=== PATIENT | female | born 1990 | race Caucasian/White ===

== ENCOUNTER → 2021-09-26 13:28 | Outpatient (REF) | payer OTHER, SELFPAY ==
--- NOTE | 2021-09-26 13:32 | ECG_ITS ---
Hook-up date: 2021-09-26 13:52:00 Duration: 25:43:00 Test Indications: PALPITATIONS Medications: 260040 QRS complexes 2 Ventricular ectopics which represent <1 % of total QRS comp. 2 Supraventricular ectopics which represent <1 % of total QRS comp. * Paced QRS complexs which represent % of total QRS comp. VENTRICULAR ECTOPY 2 Isolated 0 Bigeminal Cycles 0 Couplets 0 Runs 0 Beats in Runs * Beats LONGEST at * BPM at :: -- * Beats FASTEST at * BPM at :: -- SUPRAVENTRICULAR ECTOPY 2 Isolated 0 Couplets 0 Runs 0 Beats in Runs * Beats LONGEST at * BPM at :: -- * Beats FASTEST at * BPM at :: -- HEART RATES 56 MIN at 02:08:21 2021-09-27 103 AVG 166 MAX at 17:27:51 2021-09-26 LONGEST RR 1.4160 secs at 02:03:42 2021-09-27 S-T LEVELS Channel 1 - 128 mm at 13:52:00 2021-09-26 - 128 mm at 13:52:00 2021-09-26 Channel 2 - 128 mm at 13:52:00 2021-09-26 - 128 mm at 13:52:00 2021-09-26 Channel 3 - 128 mm at 03:31:11 -- - 128 mm at 03:31:11 Basic rhythm Normal sinus rhythm No long pause or profound bradycardia Frequent Sinus tachycardia , 64% of time HR > 100 bpm No dangerous dysrhythm periods Patient reported multiple vents correlated with sinus tachycardia Referred By: Quynh Johnson Overread By: TAMMIE EDMOND MD
== END ==
LOC: HO.CARD 13:28
PROVIDERS: PCP Nurse Practitioner Family; Visit Provider Nurse Practitioner Family
DX: R07.89 Other chest pain (principal); R00.2 Palpitations
CPT/HCPCS: 93225; 93226

== ENCOUNTER 2021-10-08 08:43 | Outpatient (REF) | payer OTHER, SELFPAY ==
[2021-10-08 09:42] LABS: D Dimer High Sensitivity < 150 NG/ML
== END 2021-10-08 08:44 | disposition home or self-care (01) ==
LOC: HO.LAB 08:43
PROVIDERS: PCP Nurse Practitioner Family; Visit Provider Nurse Practitioner Family
DX: R07.9 Chest pain, unspecified (principal); R06.00 Dyspnea, unspecified; R09.02 Hypoxemia; R00.2 Palpitations
CPT/HCPCS: 36415; 85379

== ENCOUNTER → 2021-10-29 08:29 | Outpatient (REF) | payer OTHER, SELFPAY ==
--- NOTE | 2021-10-29 08:35 | CA_ITS ---
Transthoracic Echocardiogram Patient (Last, First, Middle): Di Muhammad, Gender: Female Date of : 1990 Age: 31 Procedure Date: 10/29/2021 Procedure Type: Transthoracic Echocardiogram Location: OP Height: 175.26 cm Weight: 58.97 kg BSA: 1.72 m2 Heart Rate: bpm BP: 130 / 77 mmHg It Application Development Manager: VH/OT Referring MD: Quynh Johnson NP Symptoms: R00.2 PALPITATIONS, CHEST PAIN R07.89 Study Quality: Fair ECG Rhythm: Sinus Conclusions: - The left ventricular systolic function is normal. The calculated ejection fraction is 59% by biplane method. - No obvious valvular pathology seen on this study. Findings Left Ventricle Normal left ventricular cavity size. There is normal left ventricular wall thickness. The left ventricular systolic function is normal. The calculated ejection fraction is 59% by biplane method. There is no evidence of regional wall motion abnormalities. Diastolic function is normal for age. Right Ventricle Normal right ventricular cavity size and systolic function. Atria Both atria are normal in size. Aortic Valve The aortic valve was not well visualized. The aortic valve structure and function is likely normal. There is no aortic valve stenosis. There is no aortic valve regurgitation. Mitral Valve The mitral valve appears normal. There is trace mitral valve regurgitation. There is no mitral valve stenosis. Pulmonic Valve The pulmonic valve was not well visualized. Tricuspid Valve Normal tricuspid valve structure. There is trace tricuspid valve regurgitation. The pulmonary artery systolic pressure is normal. Great Vessels The sinuses of valsalva and asc aorta are normal in size. Venous The inferior vena cava is normal in size and collapses greater than 50% with inspiration. Pericardium/Pleural There is no evidence of pericardial effusion. Prior Study Comparison No prior study available for comparison. Recommendations, Care & Conclusions No obvious valvular pathology seen on this study. Measurements 2D Linear Measurements IVSd: 0.71 0.6-0.9/0.6-1.0 cm LVIDd: 3.65 3.9-5.3/4.2-5.9 cm LVIDd Index: 2.12 2.4-3.2/2.2-3.1 cm/m2 LVIDs: 2.55 2.0-3.6 cm LVPWd: 0.71 0.7-1.1 cm LA Diam: 2.40 2.7-3.8/3.0-4.0 cm LAIDs Index: 1.40 1.5-2.3 cm/m2 LV Mass: 84.64 67-162/88-224 g LV Mass Index: 49.21 43-95/49-115 g/m2 LVOT Diam: 2.00 3.0+(-)1.3 cm 2D Systolic Function EF 4C: 59.00 >55% EF 2C: 61.70 >55% EF BiP: 59.30 >55% Mitral Valve MV Pk E: 0.81 MV PK A: 0.66 MV Decel Time: 145.00 E/A: 1.20 E'Lateral: 10.10 E'Medial: 11.00 E/E' Med: 7.30 E/E' Lat: 8.00 PHT: 42.00 MVA PHT: 5.24 Decel [place]: 5.56 Aortic Valve AoV Pk Gen: 1.22 AoV Mn Gen: 0.90 AoV VTI: 0.24 AoV Pk Grad: 6.00 Aov Mn Grad: 3.00 CHRISTOPH Cont.VTI: 2.43 LVOT LVOT Pk Gen: 0.93 LVOT Mn Gen: 0.63 LVOT VTI: 0.19 LVOT Pk Grad: 3.00 LVOT Mn Grad: 2.00 LVOT Diam: 2.00 LVOT Area: 3.14 Diastolic Function MV Pk E: 0.81 MV Pk A: 0.66 E/A: 1.20 E'Medial: 11.00 E/E' Med: 7.30 E' Laterial: 10.10 E/E' Lat: 8.00 Tricuspid Valve TR Pk Gen: 6.00 RA Press: 3.00 RVSP: 9.00 Great Vessels Aorta Sinus of Valsalva: 2.50 2.0-3.5 cm Ao Asc: 3.00 2.1-3.4 cm Ao Arch: 2.20 Pulmonary Valve PV Pk Gen: 1.00 Peak PV Grad: 4.00 Updated in Other Vendor System with Status of Final Byron Phelps MD electronically signed on 10/29/2021 12:28:41 PM with status of Final
== END ==
LOC: HO.CARD 08:29
PROVIDERS: PCP Nurse Practitioner Family; Visit Provider Nurse Practitioner Family
DX: R00.2 Palpitations (principal); R07.89 Other chest pain
CPT/HCPCS: 93306; J2370; J3010

== ENCOUNTER 2021-11-09 10:10 | Emergency (ER) | payer OTHER, SELFPAY ==
--- NOTE | 2021-11-09 | ECG_ITS ---
Test Reason : PALPITATION Blood Pressure : / mmHG Vent. Rate : 116 BPM Atrial Rate : 116 BPM P-R Int : 128 ms QRS Dur : 082 ms QT Int : 362 ms P-R-T Axes : 080 068 060 degrees QTc Int : 503 ms Sinus tachycardia Nonspecific ST and T wave abnormality Prolonged QT Abnormal ECG No previous ECGs available Referred By: Generic ED Physician Electronically Signed By:LIZETT DELEON
--- NOTE | ~2021-11-09 | XR_ITS ---
EXAMINATION: XR CHEST CLINICAL INFORMATION: Shortness of breath COMPARISON: None TECHNIQUE: Frontal view of the chest was obtained. FINDINGS: The cardiac and mediastinal contours are normal. The lungs are well inflated. There are symmetric nodular densities at both lung bases probably representing nipple shadows. The lungs are otherwise clear. There is no pleural effusion or pneumothorax. Bony structures are unremarkable. XR/XR chest 1V IMPRESSION: No evidence for acute disease in the chest.
[2021-11-09 10:12] VITALS: BP 156/100; PULSE 125; RESP 20; TEMP 36.2; O2SAT 98; BMI 19.0
--- NOTE | 2021-11-09 10:56 | ED_ITS ---
HPI - SOB/Dyspnea General Chief Complaint: Dyspnea Stated Complaint: SOB/HBP Time Seen by Provider: 11/09/21 10:56 Source: patient Mode of arrival: ambulatory Limitations: no limitations History of Present Illness HPI Narrative: patient with increasing shortness of breath and fatigue over the last 3 months. Patient states that she has had tachycardia and palpitations. Despite exercising and eating well symptoms are getting worse. Patient had a full workup including ddimer, echo done 2 weeks ago normal, EKG and holter was normal, thyroid function normal? MD elicited complaint: shortness of breath Related Data Allergies Allergy/AdvReac Type Severity Reaction Status Date / Time No Known Allergies Allergy Verified 11/09/21 11:02 [facility] Social History Social History Alcohol intake: never Patient Tobacco Use Status: Never used Tobacco Use of substances other than those prescribed or required for medical reasons: No Advance Directives: No Advance Directives Information Provided: No Patient : No Physical Exam Vital Signs: Vital Signs: Last Vital Signs Temp 98.2 F 11/09/21 13:11 Pulse 91 11/09/21 13:11 Resp 18 11/09/21 13:11 BP 129/80 11/09/21 13:11 Pulse Ox 98 11/09/21 13:11 BMI result Body Mass Index 19.0 Course Reevaluation(s) Reevaluation #1: patient has had extensive work up for Cardiac issues, today work up negative for hyperthyroid, or autoimmune. She continues to be tachycardic, I will refer her to Dr. Phelps for further consultation. Also considering long covid syndrome as patient recently had Covid. I will dc home Time: 13:44 MDM - SOB/Dyspnea Lab Data Result diagrams: 11/09/21 11:18 11/09/21 11:18 Labs: Lab Results 11/09/21 11/09/21 11/09/21 Range/Units 11:18 11:18 11:18 WBC 10.4 (4.8-10.8) X10*3/uL RBC 4.60 (4.20-5.50) X10*6/uL Hgb 14.3 (12.0-16.0) g/dl Hct 42.8 (37.0-47.0) % MCV 93.0 (80.0-98.0) fL MCH 31.1 (27.0-33.0) pg MCHC 33.4 (31.0-35.0) g/dl RDW 12.6 (11.0-16.0) % Plt Count 231 (160-400) X10*3/uL MPV 11.6 (9.4-12.3) fL Immature Gran % (Auto) 0.3 (0.0-0.4) % Neut % (Auto) 67.5 (45-73) % Lymph % (Auto) 24.2 (20-40) % Gove % (Auto) 6.7 (2-11) % Eos % (Auto) 0.8 (0-4) % Baso % (Auto) 0.5 (0-2) % Lymph # (Auto) 2.5 (1.2-4.9) X10*3/uL Gove # (Auto) 0.7 (0.1-1.2) X10*3/uL Eos # (Auto) 0.1 (0.0-0.4) X10*3/uL Baso # (Auto) 0.1 (0.0-0.2) X10*3/uL Abs Immat Gran (auto) 0.03 (0.00-0.03) X10*3/uL Absolute Neuts (auto) 7.0 (2.0-8.3) x10*3/uL Absolute Nucleated RBC 0.000 (0.0-0.012) X10*3/uL Nucleated RBC % (auto) 0.0 (0.0-0.2) /100WBC ESR (0-20) MM/HR D-Dimer High Sensitivty < 150 NG/ML Sodium 138 (135-145) mmol/L Potassium 3.9 (3.3-5.1) mmol/L Chloride 105 (96-108) mmol/L Carbon Dioxide 24 (22-29) mmol/L Anion Gap 13 (12-20) BUN 15 (9-16) mg/dL Creatinine 1.02 (0.5-1.4) mg/dL Estim Creat Clear Calc 72.8 Estimated GFR > 60 Random Glucose 96 (60-115) mg/dL Calcium 9.9 (8.4-10.2) mg/dL Total Bilirubin 0.5 (0.0-1.0) mg/dL AST 18 (5-31) U/L ALT 23 (0-31) U/L Alkaline Phosphatase 38 L (39-117) U/L Troponin I High Sens (<3.5-17.0) ng/L Total Protein 7.4 (6.5-8.0) g/dL Albumin 4.8 (3.5-5.0) g/dL TSH (0.32-4.0) uIU/mL 11/09/21 11/09/21 11/09/21 Range/Units 11:18 11:18 11:22 WBC (4.8-10.8) X10*3/uL RBC (4.20-5.50) X10*6/uL Hgb (12.0-16.0) g/dl Hct (37.0-47.0) % MCV (80.0-98.0) fL MCH (27.0-33.0) pg MCHC (31.0-35.0) g/dl RDW (11.0-16.0) % Plt Count (160-400) X10*3/uL MPV (9.4-12.3) fL Immature Gran % (Auto) (0.0-0.4) % Neut % (Auto) (45-73) % Lymph % (Auto) (20-40) % Gove % (Auto) (2-11) % Eos % (Auto) (0-4) % Baso % (Auto) (0-2) % Lymph # (Auto) (1.2-4.9) X10*3/uL Gove # (Auto) (0.1-1.2) X10*3/uL Eos # (Auto) (0.0-0.4) X10*3/uL Baso # (Auto) (0.0-0.2) X10*3/uL Abs Immat Gran (auto) (0.00-0.03) X10*3/uL Absolute Neuts (auto) (2.0-8.3) x10*3/uL Absolute Nucleated RBC (0.0-0.012) X10*3/uL Nucleated RBC % (auto) (0.0-0.2) /100WBC ESR 3 (0-20) MM/HR D-Dimer High Sensitivty NG/ML Sodium (135-145) mmol/L Potassium (3.3-5.1) mmol/L Chloride (96-108) mmol/L Carbon Dioxide (22-29) mmol/L Anion Gap (12-20) BUN (9-16) mg/dL Creatinine (0.5-1.4) mg/dL Estim Creat Clear Calc Estimated GFR Random Glucose (60-115) mg/dL Calcium (8.4-10.2) mg/dL Total Bilirubin (0.0-1.0) mg/dL AST (5-31) U/L ALT (0-31) U/L Alkaline Phosphatase (39-117) U/L Troponin I High Sens < 3.5 (<3.5-17.0) ng/L Total Protein (6.5-8.0) g/dL Albumin (3.5-5.0) g/dL TSH 1.29 (0.32-4.0) uIU/mL Imaging Data Chest x-ray: Radiologist's impression: FINDINGS: The cardiac and mediastinal contours are normal. The lungs are well inflated. There are symmetric nodular densities at both lung bases probably representing nipple shadows. The lungs are otherwise clear. There is no pleural effusion or pneumothorax. Bony structures are unremarkable. XR/XR chest 1V IMPRESSION: No evidence for acute disease in the chest. ? ECG Data Attestation: I personally reviewed and interpreted this ECG as follows: Interpretation: sinus tachycardia with rate of 116, RBBB, , no st or twave changes Discharge Plan Discharge Clinical Impression: Tachycardia, COVID-19 kelin roblero Patient Disposition: Home, Self-Care Instructions: Tachycardia (ED), COVID-19 (Coronavirus Disease 2019) (ED) Referrals: Byron Phelps MD [Physician] - 1 week
[2021-11-09 11:26] VITALS: BP 134/79; PULSE 91; RESP 18; TEMP 36.8; O2SAT 99
--- NOTE | 2021-11-09 11:26 | PC.NURSE ---
patient a&ox3, pt denies pain states c/p has subsided, potline monitor applied nsr 80s,vss,iv inserted, labs drawn will continue to monitor.
[2021-11-09 11:32] LABS: MANUAL DIFF FLAG NO
[2021-11-09 11:37] LABS: Basophils Absolute Auto 0.1 X10*3/uL (0.0-0.2); Basophils Percent Auto 0.5 % (0-2); Eosinophils Absolute Auto 0.1 X10*3/uL (0.0-0.4); Eosinophils Percent Auto 0.8 % (0-4); Hematocrit 42.8 % (37.0-47.0); Hemoglobin 14.3 g/dl (12.0-16.0); Imm Gran Abs Auto 0.03 X10*3/uL (0.00-0.03); Imm Gran Pct Auto 0.3 % (0.0-0.4); Lymphocytes Absolute Auto 2.5 X10*3/uL (1.2-4.9); Lymphocytes Percent Auto 24.2 % (20-40); Mean Corpuscular HGB Conc 33.4 g/dl (31.0-35.0); Mean Corpuscular Hemoglobin 31.1 pg (27.0-33.0); Mean Platelet Volume 11.6 fL (9.4-12.3); Monocytes Absolute Auto 0.7 X10*3/uL (0.1-1.2); Monocytes Percent Auto 6.7 % (2-11); Neutrophils Percent Auto 67.5 % (45-73); Platelet Count 231 X10*3/uL (160-400); Red Cell Distribution Width 12.6 % (11.0-16.0); White Blood Count 10.4 X10*3/uL (4.8-10.8)
[2021-11-09 11:52] LABS: Alanine Aminotransferase 23 U/L (0-31); Albumin Level 4.8 g/dL (3.5-5.0); Alkaline Phosphatase 38 U/L (39-117); Anion Gap 13 (12-20); Aspartate Amino Transferase 18 U/L (5-31); Bilirubin Total 0.5 mg/dL (0.0-1.0); Blood Urea Nitrogen 15 mg/dL (9-16); Calcium 9.9 mg/dL (8.4-10.2); Carbon Dioxide 24 mmol/L (22-29); Chloride 105 mmol/L (96-108); Creatinine Clr Calc Pharmacy 72.8; Estimated Glomerular Filt Rate > 60; Glucose Random 96 mg/dL (60-115); Potassium 3.9 mmol/L (3.3-5.1); Sodium 138 mmol/L (135-145); Total Protein 7.4 g/dL (6.5-8.0)
[2021-11-09 11:53] LABS: D Dimer High Sensitivity < 150 NG/ML
[2021-11-09 11:55] LABS: Troponin-I High Sensitivity < 3.5 ng/L (<3.5-17.0)
[2021-11-09 12:08] VITALS: BP 129/80; PULSE 95; RESP 18; O2SAT 100
[2021-11-09 12:10] LABS: TSH reflex Free T4 1.29 uIU/mL (0.32-4.0)
[2021-11-09 12:19] LABS: Erythrocyte Sedimentation Rate 3 MM/HR (0-20)
[2021-11-09 13:11] VITALS: BP 129/80; PULSE 91; RESP 18; TEMP 36.8; O2SAT 98
--- NOTE | 2021-11-09 13:12 | PC.NURSE ---
patient a&ox3, vss, cow tender nsr 80s, pt states she now has chest pain that is dull then sharp up to 4/10, call carolina within reach, will continue to monitor.
== END 2021-11-09 14:12 | disposition home or self-care (01) ==
PROVIDERS: Emergency Provider Emergency Medicine; PCP Nurse Practitioner Family
DX: R06.02 Shortness of breath (principal); R00.0 Tachycardia, unspecified; U09.9 Post COVID-19 condition, unspecified
CPT/HCPCS: 36415; 71045; 80053; 84443; 84484; 85025; 85379; 85652; 93005; 99283; 99284

== ENCOUNTER → 2021-12-11 13:53 | Outpatient (BNVA) | payer OTHER, SELFPAY | PROVIDERS: PCP Nurse Practitioner Family; Visit Provider Internal Medicine | DX: Z13.89 Encounter for screening for other disorder (principal) ==

== ENCOUNTER → 2024-06-24 09:26 | Outpatient (BNVA) | payer OTHER, SELFPAY | PROVIDERS: Visit Provider Physician Assistant Medical | DX: S16.1XXA Strain of muscle, fascia and tendon at neck level, initial encounter (principal); S46.812A Strain of other muscles, fascia and tendons at shoulder and upper arm level, left arm, initial encounter; S40.011A Contusion of right shoulder, initial encounter; S93.491A Sprain of other ligament of right ankle, initial encounter; W22.8XXA Striking against or struck by other objects, initial encounter | CPT/HCPCS: 73030; 73600; 99213 ==

== ENCOUNTER → 2024-06-29 09:32 | Outpatient (BNVA) | payer OTHER, SELFPAY | PROVIDERS: Visit Provider Physician Assistant Medical | DX: S16.1XXA Strain of muscle, fascia and tendon at neck level, initial encounter (principal); S46.812A Strain of other muscles, fascia and tendons at shoulder and upper arm level, left arm, initial encounter; S40.011A Contusion of right shoulder, initial encounter; S93.491A Sprain of other ligament of right ankle, initial encounter; W22.8XXA Striking against or struck by other objects, initial encounter | CPT/HCPCS: 99213 ==

== ENCOUNTER → 2024-07-07 09:49 | Outpatient (BNVA) | payer OTHER, SELFPAY | PROVIDERS: PCP Family Medicine; Visit Provider Physician Assistant Medical | DX: S16.1XXA Strain of muscle, fascia and tendon at neck level, initial encounter (principal); S46.812A Strain of other muscles, fascia and tendons at shoulder and upper arm level, left arm, initial encounter; S93.491A Sprain of other ligament of right ankle, initial encounter; W22.8XXA Striking against or struck by other objects, initial encounter; M25.311 Other instability, right shoulder | CPT/HCPCS: 99213 ==

== ENCOUNTER → 2024-07-27 09:51 | Outpatient (BNVA) | payer OTHER, SELFPAY | PROVIDERS: PCP Family Medicine; Visit Provider Physician Assistant Medical | DX: M54.2 Cervicalgia (principal); M25.311 Other instability, right shoulder; S46.811D Strain of other muscles, fascia and tendons at shoulder and upper arm level, right arm, subsequent encounter; S46.812D Strain of other muscles, fascia and tendons at shoulder and upper arm level, left arm, subsequent encounter; S93.401D Sprain of unspecified ligament of right ankle, subsequent encounter; W22.8XXD Striking against or struck by other objects, subsequent encounter | CPT/HCPCS: 73000; 73010; 99214 ==

== ENCOUNTER 2024-07-29 18:50 | Outpatient (REF) | payer OTHER, SELFPAY ==
--- NOTE | ~2024-07-29 | MR_ITS ---
EXAMINATION: MR SHOULDER WITHOUT CONTRAST, RIGHT CLINICAL INFORMATION: Instability of joint. A student slammed a door on my shoulder and constant pain more on cuff side clicking clavicle. Sometimes it feels like it drops out of place. COMPARISON: Right shoulder radiographs dated 06/24/2024. Right clavicle and scapula radiographs dated 07/27/2024. TECHNIQUE: MRI of the shoulder without contrast was performed on a high-field scanner. FINDINGS: ROTATOR CUFF: Mild infraspinatus tendinosis. No rotator cuff tendon tear. No muscle atrophy or fatty infiltration. BICEPS: Intact. CORACOACROMIAL ARCH: The undersurface of the acromion is flat with no subacromial spur. The acromioclavicular joint is normal. LABRUM/CAPSULE: Linear fluid signal within the undersurface of the posterosuperior, posterior, and posteroinferior labrum, consistent with nondisplaced undersurface tearing. Intact joint capsule. GLENOHUMERAL JOINT/MARROW: Focal marrow edema at the anterior aspect of the humeral head with minimal cortical depression measuring 1.1 x 1.1 cm (ML x CC). Findings likely represent a minimally depressed impaction fracture and are consistent with prior posterior humeral head dislocation. The humeral head is currently well seated within the glenoid. Trace glenohumeral joint effusion. MR/MR shoulder RT wo con IMPRESSION: 1. Minimally depressed impaction fracture at the anterior aspect of the humeral head with associated marrow edema, consistent with prior posterior humeral head dislocation. Humeral head is currently well seated within the glenoid. Trace glenohumeral joint effusion. 2. Nondisplaced undersurface tearing of the posterosuperior, posterior, and posteroinferior labrum. 3. Mild infraspinatus tendinosis. No rotator cuff tendon tear. Electronically signed by: Eduardo He MD 08/02/2024 12:33 [place] [facility] [place]
== END 2024-07-29 18:51 | disposition home or self-care (01) ==
LOC: HO.MRI 18:50
PROVIDERS: PCP Family Medicine; Visit Provider Internal Medicine
DX: M25.511 Pain in right shoulder (principal); M25.311 Other instability, right shoulder
CPT/HCPCS: 73221

== ENCOUNTER → 2024-08-24 09:35 | Outpatient (BNVA) | payer OTHER, SELFPAY | PROVIDERS: PCP Family Medicine; Visit Provider Physician Assistant Medical | DX: S46.812D Strain of other muscles, fascia and tendons at shoulder and upper arm level, left arm, subsequent encounter (principal); S16.1XXD Strain of muscle, fascia and tendon at neck level, subsequent encounter; S42.294D Other nondisplaced fracture of upper end of right humerus, subsequent encounter for fracture with routine healing; S43.02 Posterior subluxation and dislocation of humerus; W22.8XXD Striking against or struck by other objects, subsequent encounter | CPT/HCPCS: 99214 ==

== ENCOUNTER 2024-08-26 09:07 | Outpatient (RCR) | payer OTHER, SELFPAY ==
--- NOTE | 2024-07-15 12:51 | MHC.PT.EP ---
[facility] [place] Office [place] Office [place] Office [address] [phone] F: [phone] F: [phone] F: [phone] F: [phone] Physical Therapy Plan of Care Date of Evaluation: 07/15/24 Date of Surgery: Diagnosis: Rt SHOULDER CONTUSION, TRAPEZIUS STRAIN Assessment: 34 YO FEMALE REF TO PT FOR Rt SH CONTUSION/PAIN AND Lt CERV/THORACIC STRAIN AFTER WORK INJURY SUSTAINED ON 06/23/24. SHE IS AWAITING AN MRI. 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 SHE IS LIMITED W ADLs REQ LIFTING/ REACHING W Rt UE USAGE AND HAS NOT BEEN ABLE TO EXERCISE. THE Pt HAS DECR POSTURAL AWARENESS, LIMITED CERVICAL AND Rt SH AROM , (+) STRENGTH DEFICITS IN Rt SH COMPLEX-POST RC / SCAP MM, VERY PROMINENT Rt CLAVICLE, (+) Rt SPEED'S TEST. SKILLED PT IS INDICATED TO REDUCE Lt CERV/ Rt SH PAIN AND ADDRESS THE ABOVE FINDINGS. THE Pt IS IN AGREEMENT W POC AND APPEARS MOTIVATED TO PARTICIPATE IN PT. Frequency and Duration: The patient will be seen 2 x WK x 5 WKS Short Term Goals: DECR Rt SH AND Lt CERV PAIN/ TISSUE TENSION INCREASE CER AROM IMPROVE Pt'S SELF CORRECTION OF POSTURE/ BODY MECH W ADLs TO REDUCE CERV STRAIN INCREASE ACTIV OF POSTERIOR RC/SCAP STABILIZERS Pt'S CERV AND Rt SH PAIN DECR TO 2-10/18 [facility] Goals: *Pt INDEP W PROGRESSIVE HEP AND SELF-SX MGMT TECHN Pt RESUME REG ADLs / EXERCISE/ WORK DUTIES , EVIDENT W IMPROVED SPADI SCORE (AT EVAL 66/130 ) *Pt IMPROVE POST RC /UPPER BACK STRENGTH BY AT LEAST 1 GRADE Treatment Plan: Modalities to reduce pain, spasms and effusion. Manual therapy to restore motion and function. Therapeutic exercise to improve strength and flexibility. Neuromuscular re-education for posture and balance. Therapeutic activities to return to functional activities of daily living. Electronically signed by: DANA SEAY,PT Please sign and return to therapist. Thank you for your referral.
== END 2024-11-19 11:58 | disposition home or self-care (01) ==
LOC: HO.PT 09:07
PROVIDERS: PCP Family Medicine; Visit Provider Physician Assistant Medical
DX: S40.011D Contusion of right shoulder, subsequent encounter (principal); S16.1XXD Strain of muscle, fascia and tendon at neck level, subsequent encounter
CPT/HCPCS: 97012; 97110; 97140; 97162; 97164

== ENCOUNTER → 2024-08-26 10:12 | Outpatient (BNVA) | payer OTHER, SELFPAY | PROVIDERS: PCP Family Medicine | DX: M54.2 Cervicalgia (principal) | CPT/HCPCS: 72052 ==

== ENCOUNTER 2024-09-03 19:46 | Outpatient (REF) | payer OTHER, SELFPAY ==
--- NOTE | ~2024-09-03 | MR_ITS ---
EXAMINATION: MR CERVICAL SPINE WITHOUT CONTRAST CLINICAL INFORMATION: Injury in 06/24/2024 (hit by door) reduced range of motion, right upper extremity. Weakness and pain, right upper extremity.. COMPARISON: No priors MRI. Correlated to x-ray dated August 26, 2024 demonstrated spondylosis, C5-6. TECHNIQUE: MRI of the cervical spine was obtained using routine sequences without contrast. FINDINGS: Craniocervical junction is intact. No bone marrow STIR signal abnormality. Marginal osteophyte formation and disc desiccation C4 C7 more conspicuous at C6-7 and C5-6 levels. Reverse curvature apex at C5-6. No gross malalignment. Cervical spinal cord signal is normal. C2-3: No disc herniation. No neuroforamina stenosis. C3-4: No disc herniation. No neuroforamina stenosis. C4-5: Broad-based disc osteophyte complex formation. No cord compression. No neuroforamina stenosis. C5-6: Broad-based disc osteophyte complex formation slightly asymmetric to the left resulting in ventral deformity of spinal cord. No cord signal abnormality. Bilateral neuroforamina stenosis, left greater than the right side. C6-7: Broad-based disc herniation resulting in ventral deformity of the spinal cord with the CSF effacement of the thecal sac. No cord signal abnormality. Left neuroforamina narrowing. C7-T1: No herniated disc. No neuroforamina stenosis. No prevertebral compartment hematoma, mass or fluid collection. Flow-void signal within the main vessels is normal. Codominant vertebral arteries. MR/MR cervical spine wo con IMPRESSION: Central broad-based disc herniation C6-7 resulting in ventral cord deformity without edema and or myelopathy. Impingement syndrome should be considered in the correct clinical settings. Multilevel cervical spondylosis, C4-5 to C6-7 more conspicuous at C5-6 and C6-7 levels resulting in bilateral neuroforamina stenosis C5-6 and left neuroforamina stenosis at C6-7. Electronically signed by: Kaveh Astorga MD 09/06/2024 11:11 AM [facility]
== END 2024-09-03 19:47 | disposition home or self-care (01) ==
LOC: HO.MRI 19:46
PROVIDERS: PCP Family Medicine; Visit Provider Internal Medicine
DX: M54.2 Cervicalgia (principal)
CPT/HCPCS: 72141

== ENCOUNTER → 2024-09-03 19:55 | Outpatient (BNV) | payer OTHER, SELFPAY | PROVIDERS: PCP Family Medicine; Visit Provider Radiology Diagnostic Radiology | DX: M48.02 Spinal stenosis, cervical region (principal); M50.223 Other cervical disc displacement at C6-C7 level; M47.892 Other spondylosis, cervical region | CPT/HCPCS: 72141 ==

== ENCOUNTER → 2024-09-14 13:08 | Outpatient (BNVA) | payer OTHER, SELFPAY | PROVIDERS: PCP Family Medicine; Visit Provider Physician Assistant Medical | DX: M54.2 Cervicalgia (principal); M54.12 Radiculopathy, cervical region; M25.311 Other instability, right shoulder; S43.431D Superior glenoid labrum lesion of right shoulder, subsequent encounter; W22.8XXD Striking against or struck by other objects, subsequent encounter | CPT/HCPCS: 99213 ==

== ENCOUNTER → 2024-10-05 09:41 | Outpatient (BNVA) | payer OTHER, SELFPAY | PROVIDERS: PCP Family Medicine; Visit Provider Physician Assistant Medical | DX: M54.2 Cervicalgia (principal); M54.12 Radiculopathy, cervical region; M25.311 Other instability, right shoulder | CPT/HCPCS: 99213 ==

== ENCOUNTER → 2024-10-26 09:55 | Outpatient (BNVA) | payer OTHER, SELFPAY | PROVIDERS: PCP Family Medicine; Visit Provider Physician Assistant Medical | DX: M54.12 Radiculopathy, cervical region (principal); M25.311 Other instability, right shoulder | CPT/HCPCS: 99213 ==

== ENCOUNTER → 2024-11-25 09:30 | Outpatient (BNVA) | payer OTHER, SELFPAY | PROVIDERS: PCP Family Medicine; Visit Provider Physician Assistant Medical | DX: M54.2 Cervicalgia (principal); M25.511 Pain in right shoulder | CPT/HCPCS: 99213 ==

== ENCOUNTER → 2024-12-13 10:54 | Outpatient (BNVA) | payer OTHER, SELFPAY | PROVIDERS: PCP Family Medicine; Visit Provider Physician Assistant Medical | DX: M50.20 Other cervical disc displacement, unspecified cervical region (principal); M54.12 Radiculopathy, cervical region; M25.311 Other instability, right shoulder; S46.812D Strain of other muscles, fascia and tendons at shoulder and upper arm level, left arm, subsequent encounter; W22.8XXD Striking against or struck by other objects, subsequent encounter | CPT/HCPCS: 99214 ==

== ENCOUNTER 2024-12-30 18:27 | Outpatient (REF) | payer OTHER, SELFPAY ==
--- NOTE | ~2024-12-30 | MR_ITS ---
EXAMINATION: MR THORACIC SPINE WITHOUT CONTRAST CLINICAL INFORMATION: Persistent vertebral tenderness, upper spine. COMPARISON: None available. TECHNIQUE: MRI of the thoracic spine was obtained using routine sequences without contrast. FINDINGS: No bone marrow STIR signal abnormality. There is preservation of normal height of the vertebral bodies. There is normal alignment. There is a less than 2 mm, no- expanded hyperintense T2 cord signal within the center of the thoracic spinal cord from T5 to T9. There is no cord compression from T1 to T12. Bilateral perineural cysts, T10-11. No prevertebral compartment hematoma, mass or fluid collections. There is normal diameter of the descending thoracic aorta. MR/MR thoracic spine wo con IMPRESSION: No acute fracture or listhesis or cord compression. No cord edema and or myelopathy. 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 No gross hydrosyringomyelia. Electronically signed by: Kaveh Astorga MD 12/31/2024 07:48 AM EDT
== END 2024-12-30 18:28 | disposition home or self-care (01) ==
LOC: HO.MRI 18:27
PROVIDERS: PCP Family Medicine; Visit Provider Internal Medicine
DX: M54.2 Cervicalgia (principal); M25.311 Other instability, right shoulder
CPT/HCPCS: 72146

== ENCOUNTER → 2024-12-30 18:35 | Outpatient (BNV) | payer OTHER, SELFPAY | PROVIDERS: PCP Family Medicine; Visit Provider Radiology Diagnostic Radiology | DX: M54.6 Pain in thoracic spine (principal) | CPT/HCPCS: 72146 ==

== ENCOUNTER → 2025-01-13 15:07 | Outpatient (BNVA) | payer OTHER, SELFPAY | PROVIDERS: PCP Family Medicine; Visit Provider Physician Assistant Medical | DX: M54.12 Radiculopathy, cervical region (principal); M25.311 Other instability, right shoulder; Z98.890 Other specified postprocedural states | CPT/HCPCS: 99213 ==

== ENCOUNTER → 2025-02-03 09:41 | Outpatient (BNVA) | payer OTHER, SELFPAY | PROVIDERS: PCP Family Medicine; Visit Provider Physician Assistant Medical | DX: M54.12 Radiculopathy, cervical region (principal) | CPT/HCPCS: 99213 ==

== ENCOUNTER → 2025-02-24 09:45 | Outpatient (BNVA) | payer OTHER, SELFPAY | PROVIDERS: PCP Family Medicine; Visit Provider Physician Assistant Medical | DX: M54.12 Radiculopathy, cervical region (principal) | CPT/HCPCS: 99213 ==

== ENCOUNTER → 2025-03-17 10:02 | Outpatient (BNVA) | payer OTHER, SELFPAY | PROVIDERS: PCP Family Medicine; Visit Provider Physician Assistant Medical | DX: M54.12 Radiculopathy, cervical region (principal); Z96.611 Presence of right artificial shoulder joint; W22.8XXD Striking against or struck by other objects, subsequent encounter | CPT/HCPCS: 99213 ==

== ENCOUNTER → 2025-04-26 09:44 | Outpatient (BNVA) | payer OTHER, SELFPAY | PROVIDERS: PCP Family Medicine; Visit Provider Emergency Medicine | DX: M54.12 Radiculopathy, cervical region (principal); Z98.890 Other specified postprocedural states | CPT/HCPCS: 99214 ==

== ENCOUNTER → 2025-05-26 09:17 | Outpatient (BNVA) | payer OTHER, SELFPAY | PROVIDERS: PCP Family Medicine; Visit Provider Emergency Medicine | DX: M50.10 Cervical disc disorder with radiculopathy, unspecified cervical region (principal) | CPT/HCPCS: 99214 ==

== ENCOUNTER 2025-05-31 09:12 | Outpatient (REF) | payer OTHER, SELFPAY ==
--- NOTE | 2025-05-31 09:15 | EMG_ITS ---
Chief complaint: Left upper extremity pain, neck Reason for referral:M54.2, M54.12 Cervicalgia, Radiculopathy Referred by: SANTOS Vasquez Procedure done: NSC left upper extremity, EMG was performed left cervical and left upper extremity Left median and ulnar motor studies were performed left median and ulnar mixed sensory studies were performed, left radial sensory and median and lateral antecubital brachial sensory studies were performed an EMG needle examination was performed. Left ulnar motor study revealed moderate slowing across elbow. Mixed sensory studies were normal. Needle examination revealed dive-bomber like discharges in left lower paraspinals. 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 Clinical correlation is recommended. [facility]
== END 2025-05-31 09:13 | disposition home or self-care (01) ==
LOC: HO.NEURO 09:12
PROVIDERS: PCP Family Medicine; Visit Provider Physician Assistant Medical
DX: M54.12 Radiculopathy, cervical region (principal); R20.0 Anesthesia of skin; M79.641 Pain in right hand; M79.642 Pain in left hand
CPT/HCPCS: 95886; 95910

== ENCOUNTER → 2025-05-31 09:15 | Outpatient (BNV) | payer OTHER, SELFPAY | PROVIDERS: PCP Family Medicine; Visit Provider Psychiatry & Neurology Neurology | DX: G56.22 Lesion of ulnar nerve, left upper limb (principal) | CPT/HCPCS: 95886; 95910 ==

== ENCOUNTER 2025-06-07 14:46 | Outpatient (REF) | payer OTHER, SELFPAY ==
--- NOTE | 2025-06-07 | EMG_ITS ---
Chief complaint: Right upper extremity Reason for referral: M54.2, M54.12 Right upper extremity Referred by: Glen Sanchez DO Procedure done: Right upper extremity with EMG Right median and ulnar motor studies were performed. Right median and ulnar mixed sensory studies were performed, radial sensory and median and lateral antecubital brachial sensory studies were performed. Paraspinals were tested with a needle. These studies did not reveal any significant abnormality. Impression: This is an unremarkable study with no evidence of entrapment neuropathy, plexopathy, or radiculopathy [place] [id number] [facility]
--- OUTSIDE RECORDS SUMMARY | 2025-06-07 19:12 | XMS_ITS | Clinical Summary ---
Author Organization [facility] Address [address] [address] Phone Care Team Providers Care Assistant Brand Manager Name Role Phone Fortino Zavala MD Unavailable [phone] Silas Howell MD Primary Care Provider [phone] Silas Howell MD Unavailable [phone] Allergies Active Allergy Reactions Criticality Noted Date Comments Escitalopram Oxalate 04/04/2025 Yawning Medications multivitamins capsule Take 1 capsule by mouth as needed. Active MAGNESIUM L-THREONATE ORAL Take by mouth daily. 4 tabs daily 144 mg daily Active modafiniL (PROVIGIL) 200 MG tabletIndicatio ns:Medication refill Take 2 tablets (400 mg total) by mouth daily. 180 tablet 3 5 Active budesonide-form oterol 160-4.5 mcg/actuation inhaler Inhale 2 puffs into the lungs 2 (two) times a day. 30.6 g 3 5 Active gabapentin (NEURONTIN) 100 MG capsule Take 100 mg by mouth as needed. Active norethindrone (MICRONOR) 0.35 mg tablet Take 1 tablet by mouth every morning. 5 Active albuterol 90 mcg/actuation inhaler Inhale 2 puffs into the lungs every 4 (four) hours as needed for wheezing. 18 g 11 5 Active budesonide-glyc opyr-formoterol (BREZTRI AEROSPHERE) 160-9-4.8 mcg/actuation inhaler Inhale 2 puffs into the lungs 2 (two) times a day. 32.1 g 3 5 07/26/20 25 Active FLUoxetine (PROZAC) 10 MG capsule Take 1 capsule (10 mg total) by mouth daily. 30 capsule 5 Active solriamfetol (SUNOSI) 75 mg tablet Take 1 tablet (75 mg total) by mouth daily. 30 tablet 5 5 06/16/20 25 Active dextroamphetami ne-amphetamine (ADDERALL XR) 25 MG 24 hr capsule Take 1 capsule (25 mg total) by mouth every morning for 28 days. 28 capsule 5 06/23/20 25 Active dextroamphetami ne-amphetamine (ADDERALL XR) 25 MG 24 hr capsule Take 1 capsule (25 mg total) by mouth every morning for 28 days. 28 capsule 5 05/26/20 25 Discontinu ed(Reorder ) Active Problems Problem Noted Date Diagnosed Date Detachment of glenoid labrum 02/16/2025 Attention deficit hyperactiv ity disorder (ADHD), combined type 08/13/2024 Acne vulgaris 02/10/2024 Idiopathic hypersomnia 12/02/2023 Moderate persistent asthma without complication 10/11/2022 Assessment & Plan (03/07/2025 11:58 AM EDT): Shortness of breath and chest tightness possibly due to anxiety and asthma. Normal vitals and clear lungs. Environmental factors may contribute. - Monitor symptoms and consider environmental factors such as air quality. Palpitations 10/10/2021 Attention deficit disorder (ADD) without hyperac tivity 07/15/2017 Anxiety 07/15/2017 Resolved Problems Problem Noted Date Diagnosed Date Resolved Date Abnormal uterine bleeding 12/02/2023 Stress headaches 07/15/2017 09/13/2021 Encounters Date Type Department Care Team Description 05/31/2025 4:30 PM EDT Telemedicine [facility] [address] [place] [address] [place] [address] Paty Garcia, PMP- BREANN (generalized anxiety disorder) (Primary Dx); Attention deficit hyperactivity disorder (ADHD), predominantly inattentive type; Social anxiety disorder; Idiopathic hypersomnia 05/17/2025 Orders Only [facility] [address], [address] [place] [address] Fortino Zavala MD 05/06/2025 12:30 PM EDT Telemedicine [address] [place] [address] Paty Garcia [facility] BREANN (generalized anxiety disorder) (Primary Dx); Attention deficit hyperactivity disorder (ADHD), predominantly inattentive type; Compulsive skin picking 04/27/2025 4:00 PM EDT Office Visit [address], [address] [place] [address] Fortino Zavala MD Idiopathic hypersomnia (Primary Dx); Moderate persistent asthma without complication 04/25/2025 9:00 AM EDT Telemedicine [address] [place] [address] Paty Garcia [facility] BREANN (generalized anxiety disorder) (Primary Dx); Compulsive skin picking; Attention deficit hyperactivity disorder (ADHD), predominantly inattentive type 04/04/2025 4:00 PM EDT Office Visit [address] [place] [address] Silas Howell MD Idiopathic hypersomnia (Primary Dx); Attention deficit disorder (ADD) without hyperactivity; Generalized anxiety disorder 03/07/2025 10:46 AM EDT - 03/07/2025 11:59 PM EDT Hospital Encounter [facility] [address] [place] [address] Sophie Boggs CNP Discharge Disposition: Home or Self Care 03/07/2025 10:00 AM EDT Office Visit [address] [place] [address] Sophie Boggs CNP Dizziness (Primary Dx); Bromhidrosis; Mood changes; Moderate persistent asthma without complication from Last 3 Months Immunizations Immunization Administration Dates Next Due INFLUENZA, SPLIT VIRUS, TRIVALENT PF 07/09/2016, 06/29/2015 Influenza Quadrivalent Preservative Free IM 01/2018,07/15/2017 Tdap 03/14/2024,10/08/2016 Family History Medical History Relation Comments No Known Problems Daughter Hypertension Father Heart attack Maternal Aunt Seizures Maternal Aunt Cancer Maternal Grandfather Neuropathy Maternal Grandfather Non-hodgkins Lymphoma Maternal Grandfather Basal cell carcinoma Mother Breast cancer Mother Hyperlipidemia Mother Hypertension Mother Asthma Sister Periodic limb movement Sister No Known Problems Son Relation Status Comments Daughter Alive Father Alive Maternal Aunt (Age 52) Maternal Grandfather Alive Mother Alive Sister Alive Son Alive Social History Tobacco Use Types Packs/Day Years Used Date Smoking Tobacco: Never Passive Smoke Exposure: Never Smokeless Tobacco: Never Tobacco Cessation:Counseling Given: Not Answered Alcohol Use Standard Drinks/Week Comments Yes 0 (1 standard drink = 0.6 oz pur e alcohol) 2 drinks wine per week Child or Family Care Answer Date Record ed Do you have problems with on e of the following making it difficult for you to work, study, or receive health care? No 10/10/2022 Education Answer Date Recorded Are you interested in more education? Not on alessandro e 10/11/2024 Are you concerned about learning? Not on file 10/11/2024 No 10/11/2024 No 10/11/2024 Food Answer Date Recorded Within the past 6 months we worried whether our food would run out before we got money to buy more. Never True 10/10/2022 Within the past 6 months the food we bought just didn't last and we didn't have enough money to get more. Never True Residential Stability Answer Date Recor ded What is your housing situation today? I have malou sing 10/10/2022 How many times have you move d in the past 12 months? Zero (I did not move) 10/10/2022 Paying for Meds Answer Date Recorded Do you have trouble paying for medicines? No 10/10/2022 Paying Utility Bills Answer Date Record ed Do you have trouble paying your heating or elect ricity bill? No 10/10/2022 Transportation Answer Date Recorded Has the lack of transportati on kept you from medical appointments or from getting medications? No 10/10/2022 Unemployment Answer Date Recorded Are you currently unemployed or working on a part-time or temporary basis, and looking for work? No 10/10/2022 Digital Access Answer Date Recorded No 01/06/2023 No 01/06/2023 Reliable internet access at home? Not on file 01/06/2023 Device with a working camera? Not on file Intimate Partner Violence Answer Date R ecorded Are you denied basic needs s uch as food, clothing, or medical care? No 04/25/2025 In the past 12 months have y ou been in a relationship with a person who hurts, threatens, or tries to control you? No 04/25/2025 Are you denied basic needs s uch as food, clothing, or medical care? No 04/25/2025 In the past 12 months have y ou been in a relationship with a person who hurts, threatens, or tries to control you? No 04/25/2025 Comments No Sex and Gender Information Value Date Recorded Sex Assigned at Female 02/04/2023 9:51 AM EDT Legal Sex Female 8:59 PM EDT Gender Identity Female 02/04/2023 9:51 AM EDT Sexual Orientation Straight 02/04/2023 9: 51 AM EDT Last Filed Vital Signs Vital Sign Reading Time Taken Comments Blood Pressure 100/62 04/27/2025 4:12 PM EDT Pulse 76 04/27/2025 4:12 PM EDT Temperature 36.5 C (97.7 F) 04/04/2025 4:14 PM EDT Respiratory Rate 18 04/04/2025 4:14 PM EDT Oxygen Saturation 99% 04/27/2025 4:12 PM EDT Inhaled Oxygen Concentration - - Weight 62.1 kg (137 lb) 04/27/2025 4:12 PM EDT Height 174.7 cm (5' 8.78 ) 04/27/2025 4:12 PM ED T Body Mass Index 20.36 04/27/2025 4:12 PM EDT Plan of Treatment Upcoming Encounters Date Type Department Care Team (Late st Contact Info) Description 06/09/2025 11:30 AM EDT Telemedicine [facility] [address] [place] [address] Paty Garcia, PMCAITLYNP-[address], [address] [place] [address] 06/15/2025 4:00 PM EST Office Visit [address] [place] [address] Silas Howell MD [address] [place] [address], [address] [place] [address] [email or web address] 08/01/2025 9:45 AM EST Office Visit [address] [place] [address] Silas Howell MD [address] [place] [address], [address] [place] [address] 10/17/2025 10:40 AM EDT Office Visit [facility] [address] [place] [address] Dr [address] Floor, [address] [place] [address] Justin Rangel MD, MS [address] [facility], [address] [place] [address] [email or web address] Health Maintenance Due Date Last Done Comments PNEUMOCOCCAL VACCINES (0-49 years) (1 of 2 - PCV) 02/13/2011 INFLUENZA VACCINE (#1) 2025 8, 07/15/2017, 07/09/2016, Additional history exists COVID-19 VACCINE (1 - 2024- season) 2025 PAP SMEAR 05/04/2026 05/04/2021, 08/0 11/2019, 07/14/2017, Additional history exists DEPRESSION SCREENING 05/31/2026 05/31/2025, 04/04/20 25 Adult Td,Tdap Booster 03/14/2034 03/14/2024, 017 HEPATITIS C SCREENING Completed 05/17/2021 HIV ONE-TIME SCREENING (18-65 YEARS) Completed 05/17/2021 SMOKING STATUS SCREENING (Once After 26 Yrs) Completed 05/31/2025 HEPATITIS A VACCINES Aged Out No long er eligible based on patient's age to complete this topic HIB VACCINES Aged Out No longer eligi ble based on patient's age to complete this topic MENINGOCOCCAL VACCINES (ACWY) Aged Out No longer eligible based on patient's age to complete this topic MENINGOCOCCAL VACCINES (B) Aged Out N o longer eligible based on patient's age to complete this topic Medical Devices Not on file Procedures Procedure Name Priority Date/Time Associated Diagnosis Comments 25-OH VITAMIN D Routine 03/07/2025 11:05 AM EDT Dizziness VITAMIN B12 Routine 03/07/2025 11:05 AM EDT Dizziness COMPREHENSIVE METABOLIC PANEL Routine 03/07/2025 11:05 AM EDT Dizziness Bromhidrosis TSH WITH REFLEX Routine 03/07/2025 11:05 AM EDT Dizziness CBC AND DIFFERENTIAL Routine 03/07/2025 11:05 AM EDT Dizziness ZINC Routine 03/07/2025 11:05 AM EDT Dizziness HEPATITIS C ANTIBODY, QUALITATIVE Routine 05/17/2021 1:55 PM EDT Routine general medical examination at a [facility] care facility HM PAP SMEAR FOR RESULT ENTRY ONLY Routine 05/04/2021 from Last 3 Months or Most Recently Relevant to Health Maintenance Results * Zinc (03/07/2025 11:05 AM EDT) Zinc, S 70 60 - 106 mcg/dL [facility] Comment: (NOTE) ADDITIONAL INFORMATION This test was developed and its performance characteristics determined by [facility] in a manner consistent with CLIA requirements. This test has not been cleared or approved by the U.S. Food and Drug Administration. Blood 03/07/2025 11:0 5 AM EDT 03/07/2025 11:09 AM EDT us Sophie Rascon Flakita [facility] LAB BLOOD ORDERABLES Shannan l Result [facility] [address] [place] [address] * (ABNORMAL) Comprehensive metabolic panel (03/07/2025 11:05 AM EDT) SODIUM 140 133 - 146 mmol/L [facility] POTASSIUM 4.0 3.3 - 5.1 mmol/L [facility] CHLORIDE 104 96 - 108 mmol/L [facility] CO2 25 21 - 35 mmol/L [facility] BUN 13 6 - 19 mg/dL [facility] CREATININE 0.70 0.5 - 1.5 mg/dL [facility] GLUCOSE 100(H) 70 - 99 mg/dL [facility] ALBUMIN 4.4 3.9 - 4.8 g/dL [facility] TOTAL PROTEIN 7.1 6.5 - 8.0 g/dL [facility] CALCIUM 9.3 8.4 - 10.3 mg/dL [facility] ALKALINE PHOSPHATASE 43 39 - 117 U/L [facility] TOTAL BILIRUBIN <0.2 0.0 - 1.2 mg/dL [facility] AST 15 0 - 37 U/L [facility] ALT 8 0 - 40 U/L [facility] GLOBULIN 2.7 1 - 4.8 g/dL [facility] EGFR 117 >59 mL/min/1.7 3m2 [facility] Comment:Estimated glomerular filtration rate calculated using the CKD-EPI refit equation. ANION GAP 15 10 - 20 mmol/L [facility] Blood 03/07/2025 11:0 5 AM EDT 03/07/2025 11:09 AM EDT us Sophie Rascon Flakita [facility] LAB BLOOD ORDERABLES Shannan l Result [facility] [address] [place] [address] * TSH with reflex (03/07/2025 11:05 AM EDT) TSH 0.86 0.27 - 4.20 uIU/mL [facility] Blood 03/07/2025 11:0 5 AM EDT 03/07/2025 11:09 AM EDT Sophie Mckenzien [facility] BLOOD ORDERABLES Shannan l Result [address] [address] * 25-OH vitamin D (03/07/2025 11:05 AM EDT) Pathologist [facility] 25 [place] VIT D (TOTAL) 32 30 - 60 ng/mL [facility] Blood 03/07/2025 11:0 5 AM EDT 03/07/2025 11:09 AM EDT Sophie Dyealen [facility] LAB BLOOD ORDERABLES Shannan l Result Performing Organization Address City/[facility] Co de Phone Number [address] [address] * (ABNORMAL) CBC and differential (03/07/2025 11:05 AM EDT) Pathologist [facility] WBC 8.68 4.00 - 11.00 K/uL [facility] RBC 4.22 4.00 - 5.20 M/uL [facility] HGB 13.8 12.0 - 16.0 g/dL [facility] HCT 42.6 36.0 - 46.0 % [facility] PLT 238 150 - 450 K/uL [facility] MCV 100.9(H) 80.0 - 100.0 fL [facility] MCH 32.7(H) 27.0 - 31.0 pg [facility] MCHC 32.4 32.0 - 36.0 g/dL [facility] RDW 12.9 11.5 - 14.5 % [facility] MPV 11.8 8.4 - 12.0 fL [facility] NRBC 0.00 0.00 /100 WBCs [facility] ABSOLUTE NRBC 0.00 0.00 K/uL [facility] DIFF METHOD Auto [facility] NEUTS 70.9 48.0 - 76.0 % [facility] LYMPHS 21.7 18.0 - 41.0 % [facility] MONOS 5.9 4.0 - 11.0 % [facility] EOS 0.8 0.0 - 5.0 % [facility] BASOS 0.5 0.0 - 1.5 % [facility] Granulocytes, immature (%) 0.2 0.0 - 0.9 % [facility] ABSOLUTE NEUTS 6.16 1.92 - 7.60 K/uL [facility] ABSOLUTE LYMPHS 1.88 0.72 - 4.10 K/uL [facility] ABSOLUTE MONOS 0.51 0.16 - 1.10 K/uL [facility] ABSOLUTE EOS 0.07 0.00 - 0.50 K/uL [facility] ABSOLUTE BASOS 0.04 0.00 - 0.15 K/uL [facility] Granulocytes, immature 0.02 0.00 - 0.09 K/uL [facility] Blood 03/07/2025 11:0 5 AM EDT 03/07/2025 11:09 AM EDT Sophie Boggs [facility] BLOOD ORDERABLES Shannan l Result Performing Organization Address City/[facility]/ZIP Co de Phone Number [address] [address] * Vitamin B12 (03/07/2025 11:05 AM EDT) VITAMIN B12 467 232 - 1,245 pg/mL [facility] Blood 03/07/2025 11:0 5 AM EDT 03/07/2025 11:09 AM EDT Sophie Tarah Flakita [facility] LAB BLOOD ORDERABLES Shannan l Result [address] [address] * Hepatitis C antibody, qualitative (05/17/2021 1:55 PM EDT) HCV NON-REACTIV E NON-REACTI VE [facility] Blood 05/17/2021 1:55 PM EDT 05/17/2021 2:01 PM EDT Quynh Johnson NP LAB BLOOD ORDERABLES Final Resu lt [facility] [address] [place] [address] * PAP SMEAR FOR RESULT ENTRY ONLY (05/04/2021) us Historical Provider HEALTH MAINTENANCE Edited Result - Final from Last 3 Months or Most Recently Relevant to Health Maintenance Insurance [facility] Care Teams Assistant Brand Manager Relationship Specialty Start Date End Date Silas Howell MD [address] [place] [address], [address] [place] [address] PCP - General Family Medicine 11/05/23 Fortino Zavala MD [address] [place] [address], [address] [place] [address] Sleep Medicine 08/08/23 Silas Howell MD [address] [place] [address], [address] [place] [address] [email or web address] Insurance Assigned Provider 05/16/24 Additional Source Comments The information contained in this document represents components of the legal health record. It is not the complete legal health record.[facility]
--- OUTSIDE RECORDS SUMMARY | 2025-06-07 19:12 | XMS_ITS | Encounter Summary ---
Author Organization [facility] Address [address] [facility] [address] [place] [address] Phone Care Team Providers Care Certified Fire Investigator Name Role Phone Aurelio Bills MD Unavailable [phone] Quynh Johnson METAL DOOR ASSEMBLER Unavailable [phone] Quynh Johnson METAL DOOR ASSEMBLER Primary Care Provider [phone] Fortino Zavala MD Unavailable [phone] Silas Howell MD Primary Care Provider [phone] Silas Howell MD Unavailable [phone] Encounter Details Date Type Department Care Team (Latest Contact Info) Description 01/24/2022 Transcribe Orders [facility] [address] [place] [address] Fortino Zavala MD [address] [facility], [address] [place] [address] [email or web address] Advice given about 2019 novel coronavirus by telephone (Primary Dx) Social History Tobacco Use Types Packs/Day Years Used Date Smoking Tobacco: Never Smokeless Tobacco: Never Alcohol Use Standard Drinks/Week Comments Not Currently 0 (1 standard drink = 0.6 oz pur e alcohol) Child or Family Care Answer Date Record ed Do you have problems with on e of the following making it difficult for you to work, study, or receive health care? No 05/01/2021 Education Answer Date Recorded Are you interested in help w ith more adult education (for example, completing high school, GED, job training, learning the [place] language, technical skills, or developing parenting skills)? No 05/01/2021 Are you concerned about learning? Not on file 05/01/2021 Not on file 05/01/2021 Not on file 05/01/2021 Food Answer Date Recorded Within the past 6 months we worried whether our food would run out before we got money to buy more. Never True 05/01/2021 Within the past 6 months the food we bought just didn't last and we didn't have enough money to get more. Never True Paying for Meds Answer Date Recorded Do you have trouble paying for medicines? No 05/01/2021 Paying Utility Bills Answer Date Record ed Do you have trouble paying your heating or elect ricity bill? No 05/01/2021 Transportation Answer Date Recorded Has the lack of transportati on kept you from medical appointments or from getting medications? No 05/01/2021 Comments Unknown Sex and Gender Information Value Date Recorded Sex Assigned at Female 02/04/2023 9:51 AM EDT Legal Sex Female 8:59 PM EDT Gender Identity Female 02/04/2023 9:51 AM EDT Sexual Orientation Straight 02/04/2023 9: 51 AM EDT documented as of this encounter Plan of Treatment Upcoming Encounters Date Type Department Care Team (Late st Contact Info) Description 06/09/2025 11:30 AM EDT Telemedicine [facility] [address] [place] [address] [place] [address] Paty Garcia, HNP-[address], [address] [place] [address] 06/15/2025 4:00 PM EST Office Visit [facility] [address] [place] [address] [place] [address] Silas Howell MD [address] [place] [address], [address] [place] [address] 08/01/2025 9:45 AM EST Office Visit [facility] [address] [place] [address] Silas Howell MD [address] [facility] [place] [address] 10/17/2025 10:40 AM EDT Office Visit [facility] [address], [address] [place] [address] Justin Rangel MD, MS [address] [facility], [address] [place] [address] documented as of this encounter Results * COVID-19 PCR Order (01/25/2022 10:52 AM EDT) COVID-19 Comment [id number] [facility] COVID Testing Status Specimen received in analyzing lab. Results should be available within 24 to 48 hrs. [facility] Other 01/25/2022 10:5 2 AM EDT 01/25/2022 3:05 PM EDT us Fortino Zavala MD BODY FLUIDS AND STOOLS ORDERAB LES Final Result Performing Organization Address [facility]/State/ZIP Co de Phone Number [facility] [address] [place] [address] [facility] [address] [place] [address] documented in this encounter Visit Diagnoses Diagnosis Advice given about 2019 novel coronavirus by telephone- Primary documented in this encounter Additional Health Concerns Assessment Noted Time PHQ-2 Depression Total Score: 2 05/01/20 21 10:18 AM EDT documented as of this encounter Care Teams Certified Fire Investigator Relationship Specialty Start Date End Date Quynh Johnson, METAL DOOR ASSEMBLER [address] [place] [address] PCP - General Family Medicine 05/29/21 11/04/23 Silas Howell MD [address] [place] [address], [address] [place] [address] PCP - General Family Medicine 11/05/23 Aurelio Bills MD [address] [place] [address] Historical LMR Provider 05/29/17 08/07/23 Quynh Johnson NP [address] [place] [address] Historical LMR Provider 05/29/17 08/07/23 Fortino Zavala MD [address] [place] [address], [address] [place] [address] Sleep Medicine 08/08/23 Silas Howell MD [address] [place] [address], [address] [place] [address] Insurance Assigned Provider 05/16/24 documented as of this encounter Additional Source Comments The information contained in this document represents components of the legal health record. It is not the complete legal health record.[facility]
--- OUTSIDE RECORDS SUMMARY | 2025-06-07 19:12 | XMS_ITS | Encounter Summary ---
Author Organization [facility] Address [address] [facility] [address] [place] [address] Phone Care Team Providers Care Salvage Inspector Name Role Phone Fortino Zavala MD Unavailable [phone] Silas Howell MD Primary Care Provider [phone] Silas Howell MD Unavailable [phone] Reason for Visit * Reason Onset Date Comments Medication Refill 03/04/2025 Encounter Details Date Type Department Care Team (Late st Contact Info) Description 03/04/2025 Refill [facility] [address] [facility] 3rd Floor, [address] [place] [address] Jayne [place] [address] [place] [address] [email or web address] Medication Refill Social History Tobacco Use Types Packs/Day Years Used Date Smoking Tobacco: Never Passive Smoke Exposure: Never Smokeless Tobacco: Never Alcohol Use Standard Drinks/Week Comments Yes 0 [...] your housing situation today? I have malou hernandez 10/10/2022 How many times have you move [...] AM EDT documented as of this encounter Progress Notes * Jayne Florence MA - 03/04/2025 9:54 AM EDT Rx reviewed documented in this encounter Plan of Treatment Upcoming Encounters Date Type Department Care Team (Late st Contact Info) Description 06/09/2025 11:30 AM EDT Telemedicine [facility] [address] [place] [address] [place] [address] Paty Garcia, [facility], [address] [place] [address] 06/15/2025 4:00 PM EST Office Visit [address] [place] [address] Silas Howell MD [address] [place] [address], [address] [place] [address] 08/01/2025 9:45 AM EST Office Visit [address] [place] [address] Silas Howell MD [address] [place] [address], [address] [place] [address] 10/17/2025 10:40 AM EDT Office Visit [facility] [address] [place] [address] Dr [address] Floor, [address] [place] [address] Justin Rangel MD, [place] [address] [facility], [address] [place] [address] documented as of this encounter Visit Diagnoses Diagnosis Medication refill Issue of repeat prescriptions documented in this encounter Additional Health Concerns Assessment Noted Time PHQ-2 Depression Total Score: 0 02/10/20 24 10:22 AM EDT documented as of this encounter Care Teams Salvage Inspector Relationship Specialty Start Date End Date Silas Howell MD [address] [place] [address], [address] [place] [address] [email or web address] PCP - General Family Medicine 11/05/23 Fortino Zavala MD [address] [place] [address], [address] [place] [address] [email or web address] Sleep [email or web address] 08/08/23 Silas Howell MD [address] [place] [address], [address] [place] [address] [email or web address] Insurance Assigned Provider 05/16/24 documented as of this encounter Additional Source Comments The information contained in this document represents components of the legal health record. It is not the complete legal health record.[facility]
--- OUTSIDE RECORDS SUMMARY | 2025-06-07 19:12 | XMS_ITS | Encounter Summary ---
Author Organization [facility] Address [address] [address] Phone Care Team Providers Care Senior Quality Assurance Analyst Name Role Phone Aurelio Bills MD Unavailable Alivia Cifuentes SEWAGE PLANT OPERATOR Unavailable [phone] Quynh Johnson SEWAGE PLANT OPERATOR Unavailable [phone] Aurelio Bills MD Primary Care Provider [phone] Quynh Johnson SEWAGE PLANT OPERATOR Primary Care Provider Fortino Zavala MD Unavailable [phone] Silas Howell MD Primary Care Provider [phone] Silas Howell MD Unavailable [phone] Encounter Details Date Type Department Care Team (Late st Contact Info) Description 05/04/2021 Procedure Pass [facility] - [address] [place] [address] Social History Tobacco Use Types Packs/Day Years Used Date Smoking Tobacco: Never Smokeless Tobacco: Never Alcohol Use Standard Drinks/Week Comments Yes 6 (1 standard drink = 0.6 oz pur [...] high school, GED, job training, learning the Mexican language, technical skills, or developing parenting skills)? [...] Info) Description 06/09/2025 11:30 AM EDT Telemedicine [facility] [address] [place] [address] [place] [address] Paty Garcia, HNP-[address], [address] [place] [address] 06/15/2025 4:00 PM EST Office Visit [address] [place] [address] Silas Howell MD [address] [place] [address], [address] [place] [address] 08/01/2025 9:45 AM EST Office Visit [address] [place] [address] Silas Howell MD [address] [facility], [address] [place] [address] 10/17/2025 10:40 AM EDT Office Visit [facility] [address] Floor, [address] [place] [address] Justin Rangel MD, MS [address] [facility], [address] [place] [address] [email or web address] documented as of this encounter Visit Diagnoses Not on filedocumented in this encounter Additional Health Concerns Assessment Noted Time PHQ-2 Depression Total Score: 2 05/01/20 21 10:18 AM EDT documented as of this encounter Care Teams Senior Quality Assurance Analyst Relationship Specialty Start Date End Date Aurelio Bills MD [address] [place] [address] PCP - General Internal Medicine 02/21/21 05/28/21 Quynh Johnson NP [address] [place] [address] PCP - General Family Medicine 05/29/21 11/04/23 Silas Howell MD [address] [place] [address], [address] [place] [address] PCP - General Family Medicine 11/05/23 Aurelio Bills MD [address] [place] [address] Historical LMR Provider 05/29/17 08/07/23 Alivia Cifuentes, MELYSSA [address] [place] [address] [address] [place] [address] Historical LMR Provider 05/29/17 2 Quynh Johnson NP [address] [place] [address] [address] [place] [address] Historical LMR Provider 05/29/17 08/07/23 Fortino Zavala MD [address] [place] [address], [address] [place] [address] Sleep Medicine 08/08/23 Silas Howell MD [address] [place] [address], [address] [place] [address] Insurance Assigned Provider 05/16/24 documented as of this encounter Additional Source Comments The information contained in this document represents components of the legal health record. It is not the complete legal health record.[facility]
--- OUTSIDE RECORDS SUMMARY | 2025-06-07 19:12 | XMS_ITS | Encounter Summary ---
Author Organization [facility] Address [address] [facility] [address] [place] [address] Phone Care Team Providers Care Partition Setter Name Role Phone Fortino Zavala MD Unavailable [phone] Silas Howell MD Primary Care Provider [phone] Silas Howell MD Unavailable [phone] Reason for Visit * Reason Comments Med Change Request Encounter Details Date Type Department Care Team (Late st Contact Info) Description 01/18/2025 [facility] [address] [place] [address] 3rd Floor, [address] [place] [address] Fortino Zavala MD [address] [facility], [address] [place] [address] [email or web address] Med Change Request Social History Tobacco Use Types Packs/Day Years [...] Intimate Partner Violence Answer Date R ecorded Denied Basic Needs Not on file 02/10/2024 In the past 12 months have y ou been in a relationship with a person who hurts, threatens, or tries to control you? No 02/10/2024 Worried food would run out Not on file 02/09 In the past 12 months have y ou been in a relationship with a person who hurts, threatens, or tries to control you? No 02/10/2024 Comments No Sex and Gender Information Value Date Recorded Sex Assigned at Female 02/04/2023 9:51 AM EDT Legal Sex Female 8:59 PM EDT Gender Identity Female 02/04/2023 9:51 AM EDT Sexual Orientation Straight 02/04/2023 9: 51 AM EDT documented as of this encounter Progress Notes * Janett Gautam MA - 01/19/2025 9:19 AM EDT RX REVIEWED Pharmacy comment: Alternative Requested:NON-FORMULARY DRUG. documented in this encounter Plan of Treatment Upcoming Encounters Date Type Department Care Team (Late st Contact Info) Description 06/09/2025 11:30 AM EDT Telemedicine [facility] [address] [place] [address] [place] [address] Paty Garcia, [facility]-[address], [address] [place] [address] 06/15/2025 4:00 PM EST Office Visit [address] [place] [address] Silas Howell MD [address] [place] [address], [address] [place] [address] 08/01/2025 9:45 AM EST Office Visit [address] [place] [address] Silas Howell MD [address] [place] [address], [address] [place] [address] 10/17/2025 10:40 AM EDT Office Visit [facility] [address] [place] [address] 3rd Floor, [address] [place] [address] Justin Rangel MD, MS [address] [facility], [address] [place] [address] documented as of this encounter Visit Diagnoses Not on filedocumented in this encounter Additional Health Concerns Assessment Noted Time PHQ-2 Depression Total Score: 0 02/10/20 24 10:22 AM EDT documented as of this encounter Care Teams Partition Setter Relationship Specialty Start Date End Date Silas Howell MD [address] [place] [address], [address] [place] [address] [email or web address] PCP - General Family Medicine 11/05/23 Fortino Zavala MD [address] [place] [address], [address] [place] [address] [email or web address] Medicine 08/08/23 Silas Howell MD [address] [place] [address], [address] [place] [address] [email or web address] Insurance Assigned Provider 05/16/24 documented as of this encounter Additional Source Comments The information contained in this document represents components of the legal health record. It is not the complete legal health record.[facility]
== END 2025-06-07 14:47 | disposition home or self-care (01) ==
LOC: HO.NEURO 14:46
PROVIDERS: PCP Family Medicine; Visit Provider Physician Assistant Medical
DX: Z00.00 Encounter for general adult medical examination without abnormal findings (principal); M54.12 Radiculopathy, cervical region
CPT/HCPCS: 95886; 95910

== ENCOUNTER → 2025-06-07 15:00 | Outpatient (BNV) | payer OTHER, SELFPAY | PROVIDERS: PCP Family Medicine; Visit Provider Psychiatry & Neurology Neurology | DX: M54.2 Cervicalgia (principal); M54.12 Radiculopathy, cervical region | CPT/HCPCS: 95886; 95910 ==

== ENCOUNTER → 2025-06-28 13:09 | Outpatient (BNVA) | payer OTHER, SELFPAY | PROVIDERS: PCP Family Medicine; Visit Provider Emergency Medicine | DX: M50.10 Cervical disc disorder with radiculopathy, unspecified cervical region (principal); G56.22 Lesion of ulnar nerve, left upper limb | CPT/HCPCS: 99214 ==

== ENCOUNTER → 2025-08-01 11:06 | Outpatient (BNVA) | payer OTHER, SELFPAY | PROVIDERS: PCP Family Medicine; Visit Provider Emergency Medicine | DX: M50.10 Cervical disc disorder with radiculopathy, unspecified cervical region (principal) | CPT/HCPCS: 73030; 99214 ==